=== PATIENT | male | born 1965 ===

== ENCOUNTER 2020-05-13 15:31 | Inpatient (IN) ==
[2020-05-13] MEDS ORDERED: LACTATED RINGERS 1,000 ML IV ONE ×2 (15:47→17:53)
[2020-05-13] MEDS ORDERED: PIPERACILLIN/TAZOBACTAM 3,375 MG in SODIUM CHLORIDE 0.9% 100 ML IV STA (15:47)
[2020-05-13] MEDS ORDERED: PIPERACILLIN/TAZOBACTAM 3,375 MG VIAL IV ONE (16:01)
[2020-05-13] MEDS ORDERED: PROMETHAZINE INJ 25 MG in SODIUM CHLORIDE 0.9% 50 ML IV PRN (17:25)
[2020-05-13] MEDS ORDERED: diphenhydrAMINE 50 MG/1 ML VIAL IV PRN (17:25)
[2020-05-13] MEDS ORDERED: MEPERIDINE 25 MG/1 ML VIAL IV PRN (17:25)
[2020-05-13] MEDS ORDERED: ONDANSETRON 4 MG/2 ML VIAL IV PRN ×2 (17:25→18:58)
[2020-05-13] MEDS ORDERED: SEVOFLURANE 1 UNIT/15 MINUTE INH ONE (17:52)
[2020-05-13] MEDS ORDERED: ALBUMIN 5% 12.5 GM/250 ML VIAL IV ONE (17:52)
[2020-05-13] MEDS ORDERED: CALCIUM CHLORIDE 1,000 MG/10 ML VIAL IV ONE (17:52)
[2020-05-13] MEDS ORDERED: SODIUM BICARBONATE 50 MEQ/50 ML VIAL IV ONE (17:52)
[2020-05-13] MEDS ORDERED: NOREPINEPHRINE 4 MG/4 ML VIAL IV ONE (17:52)
[2020-05-13] MEDS ORDERED: KETAMINE 500 MG/10 ML VIAL ONE (17:52)
[2020-05-13] MEDS ORDERED: DEXAMETHASONE 4 MG/1 ML VIAL ONE (17:52)
[2020-05-13] MEDS ORDERED: fentaNYL 100 MCG/2 ML VIAL ONE (17:52)
[2020-05-13] MEDS ORDERED: PHENYLEPHRINE 10 MG/1 ML VIAL IV ONE (17:53)
[2020-05-13] MEDS ORDERED: ETOMIDATE 40 MG/20 ML VIAL IV ONE (17:53)
[2020-05-13] MEDS ORDERED: SUCCINYLCHOLINE 200 MG/10 ML VIAL ONE (17:53)
[2020-05-13] MEDS ORDERED: ROCURONIUM 100 MG/10 ML VIAL IV ONE (17:53)
[2020-05-13] MEDS ORDERED: ONDANSETRON 4 MG/2 ML VIAL ONE (17:53)
[2020-05-13] MEDS ORDERED: SODIUM CHLORIDE 0.9% 1,000 ML IV ONE (17:53)
[2020-05-13] MEDS ORDERED: SODIUM CHLORIDE 0.9% 250 ML IV ONE (17:53)
[2020-05-13] MEDS ORDERED: GLYCOPYRROLATE 0.4 MG/2 ML VIAL ONE (18:00)
[2020-05-13] MEDS ORDERED: NEOSTIGMINE 10 MG/10 ML VIAL ONE (18:00)
[2020-05-13] MEDS ORDERED: PROMETHAZINE 25 MG/1 ML VIAL IM PRN (18:58)
[2020-05-13] MEDS ORDERED: DEXTROSE 50% 25 GM/50 ML VIAL IV PRN (18:58)
[2020-05-13] MEDS ORDERED: GLUCAGON 1 MG VIAL IM PRN (18:58)
[2020-05-13] MEDS ORDERED: PNEUMOCOCCAL VACCINE (23 VALENT) 0.5 ML VIAL IM ONE (19:11)
[2020-05-13 19:48] LABS: Basophils % 0.3 % (0.0-0.8); Hematocrit 28.2 VOL% (42.0-52.0); Hemoglobin 9.5 GM/DL (14.0-18.0); Lymphocytes # 0.4 10*3/uL (1.4-4.0); Mean Corpuscular HGB Conc 33.7 GM/DL (32-36); Mean Corpuscular Volume 96.2 FL (87-102); Mean Platelet Volume 8.8 FL (9.6-12.0); Neutrophils % 76.7 % (38.7-73.9); Platelet Count 104 T/CUMM (130-400); Red Blood Count 2.93 MC/CUMM (3.8-5.5); Red Cell Distribution Width 15.3 % (9.3-17.3)
[2020-05-13 19:49] LABS: Albumin 1.6 G/DL (3.4-5.0); Calcium 8.3 MG/DL (8.5-10.1); Osmolality,Calculated 290.8 MOS/KG (273-304); Total Protein 5.3 G/DL (6.4-8.3)
[2020-05-13] MEDS: HYDROmorphone 2 MG/1 ML VIAL IV PRN (19:56)
[2020-05-13 20:36] LABS: Lymphocytes 6 % (20-55); Macrocytosis 1+; Polychromasia 1+; Segmented Neutrophils 81 % (50-85); Total Cells Counted 100
[2020-05-13 20:37] LABS: Platelet Estimate Adequate
[2020-05-13] MEDS: LACTATED RINGERS 1,000 ML IV SCH (20:44)
[2020-05-13] MEDS: INSULIN REGULAR 100 UNIT/ML SUBCUT SCH ×2 (20:45→23:32)
[2020-05-13] MEDS ORDERED: VANCOMYCIN INJ 2,000 MG in SODIUM CHLORIDE 0.9% 500 ML IV ONE (21:00)
[2020-05-13] MEDS: PANTOPRAZOLE 40 MG VIAL IV SCH (21:41)
[2020-05-14] MEDS ORDERED: LACTATED RINGERS 1,000 ML IV ONE (00:02)
[2020-05-14] MEDS ORDERED: ALBUMIN 5% 25 GM in PREMIX 1 EACH IV ONE ×2 (00:30→06:16)
[2020-05-14] MEDS ORDERED: LACTATED RINGERS 2,000 ML IV ONE (01:26)
[2020-05-14] MEDS: PIPERACILLIN/TAZOBACTAM 3,375 MG in SODIUM CHLORIDE 0.9% 100 ML IV SCH ×2 (03:24→15:48)
[2020-05-14] MEDS: LACTATED RINGERS 1,000 ML IV SCH ×2 (03:25→08:38)
[2020-05-14 03:45] LABS: Basophils % 0.1 % (0.0-0.8); Hematocrit 23.9 VOL% (42.0-52.0); Hemoglobin 7.9 GM/DL (14.0-18.0); Immature Granulocytes % 0.3 %; Immature Granulocytes Absolute 0.02 #; Lymphocytes # 0.8 10*3/uL (1.4-4.0); Lymphocytes % 10.3 % (21.2-54.2); Mean Corpuscular HGB Conc 33.1 GM/DL (32-36); Mean Corpuscular Volume 96.8 FL (87-102); Mean Platelet Volume 8.7 FL (9.6-12.0); Monocytes % 8.1 % (1.7-12.7); Neutrophils % 81.2 % (38.7-73.9); Platelet Count 62 T/CUMM (130-400); Red Blood Count 2.47 MC/CUMM (3.8-5.5); Red Cell Distribution Width 15.7 % (9.3-17.3); White Blood Count 7.8 T/CUMM (4-12)
[2020-05-14] MEDS ORDERED: SODIUM CHLORIDE 0.9% 1,000 ML IV PRN (04:01)
[2020-05-14 04:02] LABS: Albumin 1.6 G/DL (3.4-5.0); Bilirubin,Total 5.8 MG/DL (0.2-1.0); Calcium 7.7 MG/DL (8.5-10.1); Osmolality,Calculated 294.7 MOS/KG (273-304); Total Protein 4.7 G/DL (6.4-8.3)
[2020-05-14] MEDS: PHENYLEPHRINE DRIP 40 MG/250 ML PREMIX IV PRN ×2 (04:11→13:18)
[2020-05-14 04:36] LABS: Band Neutrophils 9 % (0-10); Lymphocytes 17 % (20-55); Segmented Neutrophils 67 % (50-85); Total Cells Counted 100
[2020-05-14 04:37] LABS: Anisocytosis 1+; Platelet Estimate Decreased
[2020-05-14] MEDS: INSULIN REGULAR 100 UNIT/ML SUBCUT SCH ×3 (05:53→17:46)
[2020-05-14] MEDS: PANTOPRAZOLE 40 MG VIAL IV SCH ×2 (08:27→21:39)
[2020-05-14 12:32] LABS: Basophils % 0.2 % (0.0-0.8); Eosinophils % 0.2 % (0.00-10.9); Hematocrit 34.2 VOL% (42.0-52.0); Hemoglobin 11.1 GM/DL (14.0-18.0); Immature Granulocytes % 0.4 %; Immature Granulocytes Absolute 0.07 #; Lymphocytes # 1.4 10*3/uL (1.4-4.0); Lymphocytes % 9.2 % (21.2-54.2); Mean Corpuscular HGB Conc 32.5 GM/DL (32-36); Mean Corpuscular Volume 94.7 FL (87-102); Monocytes % 7.4 % (1.7-12.7); Neutrophils % 82.6 % (38.7-73.9); Platelet Count 127 T/CUMM (130-400); Red Blood Count 3.61 MC/CUMM (3.8-5.5); Red Cell Distribution Width 16.2 % (9.3-17.3); White Blood Count 15.7 T/CUMM (4-12)
[2020-05-14 14:37] LABS: Band Neutrophils 8 % (0-10); Lymphocytes 7 % (20-55); Metamyelocytes 2 %; Segmented Neutrophils 79 % (50-85); Total Cells Counted 100
[2020-05-14 14:39] LABS: Hypochromasia 1+; Macrocytosis Slight
[2020-05-14 14:40] LABS: Platelet Estimate Increased; Toxic Granulation 1+
[2020-05-14] MEDS: THIAMINE IV SCH (16:50)
[2020-05-14] MEDS: SODIUM BICARB IV SCH (16:50)
[2020-05-14] MEDS: [UNRECOGNIZED DRUG - OTHER] IV SCH (16:50)
[2020-05-14] MEDS: MULTIVITAMIN IV SCH (16:50)
[2020-05-14] MEDS ORDERED: VANCOMYCIN INJ 1,250 MG in SODIUM CHLORIDE 0.9% 250 ML IV SCH (21:00)
[2020-05-14] MEDS: PHENOL 1.4% THROAT SPRAY 177 ML BOTTLE PO PRN (21:38)
[2020-05-14] MEDS: HYDROmorphone 2 MG/1 ML VIAL IV PRN (21:48)
[2020-05-15] MEDS: PHENYLEPHRINE DRIP 40 MG/250 ML PREMIX IV PRN (00:01)
[2020-05-15] MEDS: INSULIN REGULAR 100 UNIT/ML SUBCUT SCH ×5 (00:07→23:55)
[2020-05-15] MEDS ORDERED: LACTATED RINGERS 1,000 ML IV ONE (04:21)
[2020-05-15] MEDS: PIPERACILLIN/TAZOBACTAM 3,375 MG in SODIUM CHLORIDE 0.9% 100 ML IV SCH ×2 (04:35→16:52)
[2020-05-15 04:49] LABS: Basophils # 0.1 10*3/uL (0.0-0.2); Basophils % 0.5 % (0.0-0.8); Eosinophils # 0.2 10*3/uL (0.0-0.87); Eosinophils % 1.4 % (0.00-10.9); Hematocrit 32.1 VOL% (42.0-52.0); Hemoglobin 10.6 GM/DL (14.0-18.0); Immature Granulocytes % 0.8 %; Immature Granulocytes Absolute 0.09 #; Lymphocytes # 1.5 10*3/uL (1.4-4.0); Lymphocytes % 12.9 % (21.2-54.2); Mean Corpuscular Volume 93.6 FL (87-102); Mean Platelet Volume 8.7 FL (9.6-12.0); Monocytes % 10.8 % (1.7-12.7); Neutrophils % 73.6 % (38.7-73.9); Platelet Count 108 T/CUMM (130-400); Red Blood Count 3.43 MC/CUMM (3.8-5.5); Red Cell Distribution Width 16.7 % (9.3-17.3); White Blood Count 11.9 T/CUMM (4-12)
[2020-05-15 05:23] LABS: Albumin 1.8 G/DL (3.4-5.0); Bilirubin,Direct 5.16 MG/DL (0.0-0.20); Bilirubin,Total 6.7 MG/DL (0.2-1.0); Calcium 7.6 MG/DL (8.5-10.1); Osmolality,Calculated 287.4 MOS/KG (273-304); Total Protein 5.8 G/DL (6.4-8.3)
[2020-05-15 06:03] LABS: Band Neutrophils 2 % (0-10); Eosinophils 2 % (0-10); Hypochromasia 1+; Lymphocytes 11 % (20-55); Platelet Estimate Decreased; Segmented Neutrophils 79 % (50-85); Total Cells Counted 100
[2020-05-15 06:04] LABS: Microcytosis 1+
[2020-05-15] MEDS: THIAMINE IV SCH (06:42)
[2020-05-15] MEDS: SODIUM BICARB IV SCH ×3 (06:42→21:46)
[2020-05-15] MEDS: [UNRECOGNIZED DRUG - OTHER] IV SCH (06:42)
[2020-05-15] MEDS: MULTIVITAMIN IV SCH (06:42)
[2020-05-15] MEDS ORDERED: LACTATED RINGERS 1,000 ML IV SCH (08:30)
[2020-05-15] MEDS ORDERED: DEXTROSE IV SCH (10:00)
[2020-05-15] MEDS ORDERED: SODIUM BICARB IV SCH (10:00)
[2020-05-15] MEDS ORDERED: MULTIVITAMIN IV SCH (10:00)
[2020-05-15] MEDS: PANTOPRAZOLE 40 MG VIAL IV SCH ×2 (10:48→21:44)
[2020-05-15] MEDS: ENOXAPARIN 30 MG/0.3 ML SYRINGE SUBCUT SCH (13:53)
[2020-05-15] MEDS: DEX IV SCH ×2 (14:15→21:46)
[2020-05-15] MEDS: LACTATED RINGERS MULTIVITAMIN IV SCH ×2 (14:15→21:46)
[2020-05-16] MEDS: PIPERACILLIN/TAZOBACTAM 3,375 MG in SODIUM CHLORIDE 0.9% 100 ML IV SCH (04:18)
[2020-05-16 05:30] LABS: Basophils # 0.1 10*3/uL (0.0-0.2); Basophils % 0.6 % (0.0-0.8); Eosinophils # 0.2 10*3/uL (0.0-0.87); Eosinophils % 2.5 % (0.00-10.9); Hematocrit 31.4 VOL% (42.0-52.0); Hemoglobin 10.4 GM/DL (14.0-18.0); Immature Granulocytes % 1.3 %; Immature Granulocytes Absolute 0.12 #; Lymphocytes # 1.1 10*3/uL (1.4-4.0); Lymphocytes % 11.9 % (21.2-54.2); Mean Corpuscular HGB Conc 33.1 GM/DL (32-36); Mean Corpuscular Volume 93.5 FL (87-102); Mean Platelet Volume 8.7 FL (9.6-12.0); Monocytes % 7.4 % (1.7-12.7); Neutrophils % 76.3 % (38.7-73.9); Platelet Count 90 T/CUMM (130-400); Red Blood Count 3.36 MC/CUMM (3.8-5.5); Red Cell Distribution Width 16.2 % (9.3-17.3); White Blood Count 9.1 T/CUMM (4-12)
[2020-05-16] MEDS: INSULIN REGULAR 100 UNIT/ML SUBCUT SCH ×4 (05:36→23:45)
[2020-05-16 05:43] LABS: Calcium 7.3 MG/DL (8.5-10.1); Osmolality,Calculated 283.5 MOS/KG (273-304)
[2020-05-16] MEDS: SODIUM BICARB IV SCH (05:44)
[2020-05-16] MEDS: LACTATED RINGERS MULTIVITAMIN IV SCH (05:44)
[2020-05-16] MEDS: DEX IV SCH (05:44)
[2020-05-16 06:01] LABS: Band Neutrophils 2 % (0-10); Eosinophils 5 % (0-10); Lymphocytes 17 % (20-55); Segmented Neutrophils 71 % (50-85); Total Cells Counted 100
[2020-05-16 06:02] LABS: Anisocytosis 1+; Hypochromasia 1+; Microcytosis 1+; Platelet Estimate Decreased; Polychromasia Slight
[2020-05-16] MEDS ORDERED: MAGNESIUM SULF RIDER 2 GM in PREMIX 1 EACH IV ONE ×2 (08:32→16:00)
[2020-05-16] MEDS ORDERED: THIAMINE 200 MG/2 ML VIAL IV SCH (09:00)
[2020-05-16] MEDS: POTASSIUM CHLORIDE 20 MEQ TABLET PO SCH ×3 (09:15→17:18)
[2020-05-16] MEDS: PANTOPRAZOLE 40 MG VIAL IV SCH ×2 (10:12→22:02)
[2020-05-16] MEDS: ENOXAPARIN 30 MG/0.3 ML SYRINGE SUBCUT SCH (13:57)
[2020-05-16] MEDS ORDERED: BENZONATATE 100 MG CAPSULE PO PRN (17:02)
[2020-05-16] MEDS ORDERED: AMOXICILLIN 500 MG CAPSULE PO SCH (21:00)
[2020-05-16] MEDS ORDERED: CLARITHROMYCIN 500 MG TABLET PO SCH (21:00)
[2020-05-16] MEDS: PHENOL 1.4% THROAT SPRAY 177 ML BOTTLE PO PRN (22:02)
[2020-05-17 06:06] LABS: Basophils % 0.4 % (0.0-0.8); Eosinophils # 0.2 10*3/uL (0.0-0.87); Eosinophils % 2.5 % (0.00-10.9); Hematocrit 31.6 VOL% (42.0-52.0); Hemoglobin 10.7 GM/DL (14.0-18.0); Immature Granulocytes % 0.9 %; Immature Granulocytes Absolute 0.08 #; Lymphocytes # 0.9 10*3/uL (1.4-4.0); Lymphocytes % 9.8 % (21.2-54.2); Mean Corpuscular HGB Conc 33.9 GM/DL (32-36); Mean Corpuscular Volume 91.9 FL (87-102); Mean Platelet Volume 8.9 FL (9.6-12.0); Monocytes % 9.8 % (1.7-12.7); Neutrophils % 76.6 % (38.7-73.9); Platelet Count 98 T/CUMM (130-400); Red Blood Count 3.44 MC/CUMM (3.8-5.5); Red Cell Distribution Width 15.9 % (9.3-17.3); White Blood Count 9.2 T/CUMM (4-12)
[2020-05-17 06:38] LABS: Albumin 1.3 G/DL (3.4-5.0); Bilirubin,Direct 6.01 MG/DL (0.0-0.20); Bilirubin,Indirect 2.1 MG/DL (0.0-1.0); Bilirubin,Total 8.1 MG/DL (0.2-1.0); Calcium 7.4 MG/DL (8.5-10.1); Osmolality,Calculated 286.4 MOS/KG (273-304); Total Protein 5.3 G/DL (6.4-8.3)
[2020-05-17 07:00] LABS: Hypochromasia 1+; Microcytosis 1+; Platelet Estimate Decreased
[2020-05-17] MEDS: INSULIN REGULAR 100 UNIT/ML SUBCUT SCH ×4 (07:15→20:34)
[2020-05-17] MEDS ORDERED: VANCOMYCIN INJ 1,250 MG in SODIUM CHLORIDE 0.9% 250 ML IV SCH (09:00)
[2020-05-17] MEDS ORDERED: ALBUMIN 5% 25 GM in PREMIX 1 EACH IV SCH (09:00)
[2020-05-17] MEDS: AMOXICILLIN 500 MG CAPSULE PO SCH ×2 (09:21→20:30)
[2020-05-17] MEDS: PANTOPRAZOLE 40 MG TABLET PO SCH ×2 (09:25→20:30)
[2020-05-17] MEDS: THIAMINE 100 MG TABLET PO SCH (09:25)
[2020-05-17] MEDS: CLARITHROMYCIN 500 MG TABLET PO SCH ×2 (11:06→20:30)
[2020-05-17] MEDS: FUROSEMIDE 40 MG/4 ML VIAL IV SCH ×2 (11:07→19:09)
[2020-05-17] MEDS: ALBUMIN 25% 25 GM in PREMIX 1 EACH IV SCH ×2 (11:08→19:09)
[2020-05-17] MEDS: ENOXAPARIN 30 MG/0.3 ML SYRINGE SUBCUT SCH (20:30)
[2020-05-17] MEDS: SODIUM BICARBONATE 650 MG TABLET PO SCH (20:30)
[2020-05-18] MEDS: ALBUMIN 25% 25 GM in PREMIX 1 EACH IV SCH ×3 (01:36→17:42)
[2020-05-18] MEDS: FUROSEMIDE 40 MG/4 ML VIAL IV SCH ×3 (02:37→19:09)
[2020-05-18 05:37] LABS: Basophils # 0.1 10*3/uL (0.0-0.2); Basophils % 0.6 % (0.0-0.8); Eosinophils # 0.2 10*3/uL (0.0-0.87); Eosinophils % 2.8 % (0.00-10.9); Hematocrit 30.3 VOL% (42.0-52.0); Hemoglobin 10.4 GM/DL (14.0-18.0); Immature Granulocytes % 1.7 %; Immature Granulocytes Absolute 0.14 #; Lymphocytes # 0.8 10*3/uL (1.4-4.0); Lymphocytes % 9.7 % (21.2-54.2); Mean Corpuscular HGB Conc 34.3 GM/DL (32-36); Mean Corpuscular Volume 91.3 FL (87-102); Mean Platelet Volume 8.7 FL (9.6-12.0); Monocytes % 10.3 % (1.7-12.7); Neutrophils % 74.9 % (38.7-73.9); Platelet Count 80 T/CUMM (130-400); Red Blood Count 3.32 MC/CUMM (3.8-5.5); Red Cell Distribution Width 15.8 % (9.3-17.3); White Blood Count 8.3 T/CUMM (4-12)
[2020-05-18 05:47] LABS: Osmolality,Calculated 279.1 MOS/KG (273-304)
[2020-05-18 05:59] LABS: Hypochromasia 1+; Microcytosis 1+; Platelet Estimate Decreased
[2020-05-18] MEDS: INSULIN REGULAR 100 UNIT/ML SUBCUT SCH ×4 (07:30→20:59)
[2020-05-18] MEDS: SODIUM BICARBONATE 650 MG TABLET PO SCH ×2 (09:22→20:57)
[2020-05-18] MEDS: PANTOPRAZOLE 40 MG TABLET PO SCH ×2 (09:23→20:57)
[2020-05-18] MEDS: AMOXICILLIN 500 MG CAPSULE PO SCH ×2 (09:23→20:57)
[2020-05-18] MEDS: THIAMINE 100 MG TABLET PO SCH (09:23)
[2020-05-18] MEDS: CLARITHROMYCIN 500 MG TABLET PO SCH ×2 (09:25→20:59)
[2020-05-18 11:12] LABS: Albumin 2.1 G/DL (3.4-5.0); Bilirubin,Direct 8.17 MG/DL (0.0-0.20); Bilirubin,Indirect 2.7 MG/DL (0.0-1.0); Bilirubin,Total 10.9 MG/DL (0.2-1.0); Total Protein 5.8 G/DL (6.4-8.3)
[2020-05-18] MEDS: ENOXAPARIN 30 MG/0.3 ML SYRINGE SUBCUT SCH (20:59)
[2020-05-19] MEDS: ALBUMIN 25% 25 GM in PREMIX 1 EACH IV SCH ×3 (02:17→19:10)
[2020-05-19] MEDS ORDERED: ACETYLCYSTEINE IV ONE ×3 (02:30→22:00)
[2020-05-19] MEDS ORDERED: DEXTROSE 5% IV ONE ×3 (02:30→22:00)
[2020-05-19] MEDS: FUROSEMIDE 40 MG/4 ML VIAL IV SCH ×3 (04:01→18:24)
[2020-05-19 06:41] LABS: Basophils % 0.6 % (0.0-0.8); Eosinophils # 0.1 10*3/uL (0.0-0.87); Eosinophils % 2.1 % (0.00-10.9); Hematocrit 27.7 VOL% (42.0-52.0); Hemoglobin 9.4 GM/DL (14.0-18.0); Immature Granulocytes Absolute 0.13 #; Lymphocytes # 0.7 10*3/uL (1.4-4.0); Lymphocytes % 11.3 % (21.2-54.2); Mean Corpuscular HGB Conc 33.9 GM/DL (32-36); Mean Platelet Volume 9.1 FL (9.6-12.0); Monocytes % 9.9 % (1.7-12.7); Neutrophils % 74.1 % (38.7-73.9); Platelet Count 72 T/CUMM (130-400); Red Blood Count 3.01 MC/CUMM (3.8-5.5); Red Cell Distribution Width 15.7 % (9.3-17.3); White Blood Count 6.6 T/CUMM (4-12)
[2020-05-19 07:02] LABS: Albumin 2.5 G/DL (3.4-5.0); Bilirubin,Direct 8.3 MG/DL (0.0-0.20); Bilirubin,Indirect 3.8 MG/DL (0.0-1.0); Total Protein 5.6 G/DL (6.4-8.3)
[2020-05-19 07:09] LABS: Bilirubin,Total 12.1 MG/DL (0.2-1.0)
[2020-05-19 07:16] LABS: Calcium 7.8 MG/DL (8.5-10.1)
[2020-05-19] MEDS ORDERED: MAGNESIUM SULF RIDER 4 GM in PREMIX 1 EACH IV ONE (09:00)
[2020-05-19] MEDS: CLARITHROMYCIN 500 MG TABLET PO SCH ×2 (09:36→21:25)
[2020-05-19] MEDS: THIAMINE 100 MG TABLET PO SCH (09:36)
[2020-05-19] MEDS: PANTOPRAZOLE 40 MG TABLET PO SCH ×2 (09:36→21:23)
[2020-05-19] MEDS: AMOXICILLIN 500 MG CAPSULE PO SCH ×2 (09:46→21:23)
[2020-05-19] MEDS: INSULIN REGULAR 100 UNIT/ML SUBCUT SCH ×4 (09:46→23:42)
[2020-05-19 12:27] LABS: INR 1.4; PT Patient Result 15.1 SECS (9.8-11.9)
[2020-05-19 13:06] LABS: Partial Thromboplastin Time 46.1 SECS (23.9-33.8)
[2020-05-19] MEDS: SODIUM BICARBONATE 650 MG TABLET PO SCH ×2 (13:50→21:23)
[2020-05-19 17:13] LABS: % Iron Saturation 81.7 % (18-50)
[2020-05-19 18:10] LABS: Hepatitis B Core IgM Quant 0.22 Index; Hepatitis B Surface Ag Quant < 0.10 Index; Hepatitis B Surface Ag Result Negative (Negative); Hepatitis C Virus Ab Quant 0.11 Index; Hepatitis C Virus Ab Result Negative (Negative)
[2020-05-19] MEDS: ENOXAPARIN 30 MG/0.3 ML SYRINGE SUBCUT SCH (21:23)
[2020-05-20] MEDS: FUROSEMIDE 40 MG/4 ML VIAL IV SCH ×2 (04:06→09:35)
[2020-05-20] MEDS: ALBUMIN 25% 25 GM in PREMIX 1 EACH IV SCH ×3 (04:06→18:03)
[2020-05-20 05:20] LABS: Basophils % 0.6 % (0.0-0.8); Eosinophils # 0.1 10*3/uL (0.0-0.87); Eosinophils % 1.7 % (0.00-10.9); Hematocrit 26.6 VOL% (42.0-52.0); Hemoglobin 9.5 GM/DL (14.0-18.0); Immature Granulocytes % 3.3 %; Immature Granulocytes Absolute 0.23 #; Lymphocytes # 0.8 10*3/uL (1.4-4.0); Lymphocytes % 10.8 % (21.2-54.2); Mean Corpuscular HGB Conc 35.7 GM/DL (32-36); Mean Corpuscular Volume 90.8 FL (87-102); Mean Platelet Volume 9.3 FL (9.6-12.0); Monocytes % 12.7 % (1.7-12.7); Neutrophils % 70.9 % (38.7-73.9); Red Blood Count 2.93 MC/CUMM (3.8-5.5); Red Cell Distribution Width 15.3 % (9.3-17.3)
[2020-05-20 05:32] LABS: INR 1.6; Partial Thromboplastin Time 46.4 SECS (23.9-33.8)
[2020-05-20 05:33] LABS: Platelet Count 87 T/CUMM (130-400)
[2020-05-20 05:43] LABS: Eosinophils 1 % (0-10); Hypochromasia 1+; Lymphocytes 7 % (20-55); Microcytosis Slight; Platelet Estimate Decreased; Segmented Neutrophils 81 % (50-85); Total Cells Counted 100
[2020-05-20 06:05] LABS: Albumin 2.2 G/DL (3.4-5.0); Bilirubin,Direct 9.1 MG/DL (0.0-0.20); Bilirubin,Indirect 4.6 MG/DL (0.0-1.0); Calcium 8.1 MG/DL (8.5-10.1); Osmolality,Calculated 276.4 MOS/KG (273-304); Total Protein 5.3 G/DL (6.4-8.3)
[2020-05-20 06:15] LABS: Bilirubin,Total 13.7 MG/DL (0.2-1.0)
[2020-05-20] MEDS ORDERED: DEXTROSE 5% IV ONE (09:30)
[2020-05-20] MEDS ORDERED: ACETYLCYSTEINE IV ONE (09:30)
[2020-05-20] MEDS: INSULIN REGULAR 100 UNIT/ML SUBCUT SCH ×4 (09:33→22:16)
[2020-05-20] MEDS: SODIUM BICARBONATE 650 MG TABLET PO SCH ×2 (09:34→22:16)
[2020-05-20] MEDS: PANTOPRAZOLE 40 MG TABLET PO SCH ×2 (09:34→22:15)
[2020-05-20] MEDS: CLARITHROMYCIN 500 MG TABLET PO SCH ×2 (09:34→22:16)
[2020-05-20] MEDS: THIAMINE 100 MG TABLET PO SCH (09:35)
[2020-05-20] MEDS: AMOXICILLIN 500 MG CAPSULE PO SCH (09:35)
[2020-05-20] MEDS ORDERED: methylPREDNISolone SOD SUC 40 MG/1 ML VIAL IV SCH (13:30)
[2020-05-20 17:16] LABS: Cancer Antigen 19-9 31.8 U/ML (0-37); Carcinoembryonic Antigen 1.5 NG/ML (0.0-5.0)
[2020-05-20] MEDS: ENOXAPARIN 30 MG/0.3 ML SYRINGE SUBCUT SCH (22:16)
[2020-05-21] MEDS: ALBUMIN 25% 25 GM in PREMIX 1 EACH IV SCH ×3 (04:04→18:23)
[2020-05-21 05:19] LABS: Basophils % 0.1 % (0.0-0.8); Hematocrit 27.2 VOL% (42.0-52.0); Hemoglobin 9.6 GM/DL (14.0-18.0); Immature Granulocytes % 1.5 %; Immature Granulocytes Absolute 0.11 #; Lymphocytes # 0.5 10*3/uL (1.4-4.0); Lymphocytes % 6.8 % (21.2-54.2); Mean Corpuscular HGB Conc 35.3 GM/DL (32-36); Mean Corpuscular Volume 89.2 FL (87-102); Mean Platelet Volume 9.5 FL (9.6-12.0); Monocytes % 2.5 % (1.7-12.7); Neutrophils % 89.1 % (38.7-73.9); Red Blood Count 3.05 MC/CUMM (3.8-5.5); Red Cell Distribution Width 15.2 % (9.3-17.3); White Blood Count 7.2 T/CUMM (4-12)
[2020-05-21 05:20] LABS: Platelet Count 83 T/CUMM (130-400)
[2020-05-21 05:36] LABS: INR 1.7; Partial Thromboplastin Time 49.2 SECS (23.9-33.8)
[2020-05-21 05:37] LABS: Platelet Estimate Decreased
[2020-05-21 05:44] LABS: Albumin 2.7 G/DL (3.4-5.0); Calcium 8.8 MG/DL (8.5-10.1); Osmolality,Calculated 277.8 MOS/KG (273-304)
[2020-05-21] MEDS ORDERED: LEVOFLOXACIN 500 MG TABLET PO ONE (07:16)
[2020-05-21] MEDS ORDERED: POTASSIUM CHLORIDE INJ 10 MEQ in SODIUM CHLORIDE 0.45% 1,000 ML IV SCH (08:00)
[2020-05-21] MEDS: INSULIN REGULAR 100 UNIT/ML SUBCUT SCH ×4 (09:21→21:34)
[2020-05-21] MEDS: SODIUM BICARBONATE 650 MG TABLET PO SCH ×2 (09:22→21:25)
[2020-05-21] MEDS: PANTOPRAZOLE 40 MG TABLET PO SCH ×2 (09:22→21:25)
[2020-05-21] MEDS: CLARITHROMYCIN 500 MG TABLET PO SCH ×2 (09:22→21:25)
[2020-05-21] MEDS: THIAMINE 100 MG TABLET PO SCH (09:23)
[2020-05-21] MEDS: FUROSEMIDE 40 MG/4 ML VIAL IV SCH (09:23)
[2020-05-21] MEDS: traMADol 50 MG TABLET PO PRN (16:53)
[2020-05-21] MEDS ORDERED: traMADol 50 MG TABLET PO ONE (20:55)
[2020-05-21] MEDS: ENOXAPARIN 30 MG/0.3 ML SYRINGE SUBCUT SCH (21:26)
[2020-05-22] MEDS: ALBUMIN 25% 25 GM in PREMIX 1 EACH IV SCH ×3 (02:13→18:48)
[2020-05-22 08:11] LABS: Basophils % 0.3 % (0.0-0.8); Eosinophils % 0.3 % (0.00-10.9); Hematocrit 25.4 VOL% (42.0-52.0); Hemoglobin 8.9 GM/DL (14.0-18.0); Immature Granulocytes % 1.1 %; Immature Granulocytes Absolute 0.13 #; Lymphocytes # 1.1 10*3/uL (1.4-4.0); Lymphocytes % 9.1 % (21.2-54.2); Mean Corpuscular Volume 88.5 FL (87-102); Mean Platelet Volume 9.1 FL (9.6-12.0); Monocytes % 7.5 % (1.7-12.7); Neutrophils % 81.7 % (38.7-73.9); Platelet Count 123 T/CUMM (130-400); Red Blood Count 2.87 MC/CUMM (3.8-5.5); Red Cell Distribution Width 15.5 % (9.3-17.3); White Blood Count 11.6 T/CUMM (4-12)
[2020-05-22 08:25] LABS: INR 1.5; PT Patient Result 16.1 SECS (9.8-11.9)
[2020-05-22 08:41] LABS: Bilirubin,Total 11.6 MG/DL (0.2-1.0); Calcium 9.2 MG/DL (8.5-10.1); Osmolality,Calculated 277.4 MOS/KG (273-304); Total Protein 5.8 G/DL (6.4-8.3)
[2020-05-22] MEDS: FUROSEMIDE 40 MG/4 ML VIAL IV SCH (09:12)
[2020-05-22] MEDS: INSULIN REGULAR 100 UNIT/ML SUBCUT SCH ×4 (10:12→21:51)
[2020-05-22] MEDS: CLARITHROMYCIN 500 MG TABLET PO SCH ×2 (13:30→21:53)
[2020-05-22] MEDS: PANTOPRAZOLE 40 MG TABLET PO SCH ×2 (13:30→21:54)
[2020-05-22] MEDS: SODIUM BICARBONATE 650 MG TABLET PO SCH ×2 (13:30→21:53)
[2020-05-22] MEDS: LEVOFLOXACIN 250 MG TABLET PO SCH (13:30)
[2020-05-22] MEDS: THIAMINE 100 MG TABLET PO SCH (13:30)
[2020-05-22] MEDS: ENOXAPARIN 30 MG/0.3 ML SYRINGE SUBCUT SCH (22:01)
[2020-05-23 06:03] LABS: Basophils % 0.3 % (0.0-0.8); Eosinophils # 0.1 10*3/uL (0.0-0.87); Eosinophils % 0.5 % (0.00-10.9); Hematocrit 23.9 VOL% (42.0-52.0); Hemoglobin 8.3 GM/DL (14.0-18.0); Immature Granulocytes % 1.5 %; Immature Granulocytes Absolute 0.14 #; Lymphocytes # 0.9 10*3/uL (1.4-4.0); Lymphocytes % 9.4 % (21.2-54.2); Mean Corpuscular HGB Conc 34.7 GM/DL (32-36); Mean Corpuscular Volume 90.2 FL (87-102); Mean Platelet Volume 9.2 FL (9.6-12.0); Monocytes % 8.5 % (1.7-12.7); Neutrophils % 79.8 % (38.7-73.9); Platelet Count 115 T/CUMM (130-400); Red Blood Count 2.65 MC/CUMM (3.8-5.5); Red Cell Distribution Width 16.2 % (9.3-17.3); White Blood Count 9.2 T/CUMM (4-12)
[2020-05-23 06:12] LABS: INR 1.6; PT Patient Result 16.7 SECS (9.8-11.9)
[2020-05-23 06:31] LABS: Albumin 2.9 G/DL (3.4-5.0); Calcium 8.6 MG/DL (8.5-10.1); Osmolality,Calculated 284.8 MOS/KG (273-304); Total Protein 5.5 G/DL (6.4-8.3)
[2020-05-23 06:37] LABS: Bilirubin,Total 13.1 MG/DL (0.2-1.0)
[2020-05-23] MEDS: INSULIN REGULAR 100 UNIT/ML SUBCUT SCH ×4 (07:49→21:51)
[2020-05-23] MEDS: PANTOPRAZOLE 40 MG TABLET PO SCH ×2 (08:36→21:45)
[2020-05-23] MEDS: CLARITHROMYCIN 500 MG TABLET PO SCH ×2 (08:36→21:44)
[2020-05-23] MEDS: THIAMINE 100 MG TABLET PO SCH (08:36)
[2020-05-23] MEDS: SODIUM BICARBONATE 650 MG TABLET PO SCH ×2 (08:36→21:44)
[2020-05-23] MEDS: FUROSEMIDE 40 MG/4 ML VIAL IV SCH (08:36)
[2020-05-23] MEDS: LEVOFLOXACIN 250 MG TABLET PO SCH (08:36)
[2020-05-23] MEDS: ALBUMIN 25% 25 GM in PREMIX 1 EACH IV SCH ×2 (08:37→17:21)
[2020-05-23] MEDS: traMADol 50 MG TABLET PO PRN (08:49)
[2020-05-23] MEDS: ENOXAPARIN 30 MG/0.3 ML SYRINGE SUBCUT SCH (21:44)
[2020-05-24] MEDS: ALBUMIN 25% 25 GM in PREMIX 1 EACH IV SCH ×3 (00:34→17:27)
[2020-05-24 05:57] LABS: Basophils % 0.4 % (0.0-0.8); Eosinophils # 0.1 10*3/uL (0.0-0.87); Eosinophils % 0.8 % (0.00-10.9); Hematocrit 23.4 VOL% (42.0-52.0); Hemoglobin 8.3 GM/DL (14.0-18.0); Immature Granulocytes % 1.5 %; Immature Granulocytes Absolute 0.16 #; Lymphocytes % 9.3 % (21.2-54.2); Mean Corpuscular HGB Conc 35.5 GM/DL (32-36); Mean Corpuscular Volume 89.3 FL (87-102); Mean Platelet Volume 9.2 FL (9.6-12.0); Monocytes % 6.7 % (1.7-12.7); Neutrophils % 81.3 % (38.7-73.9); Platelet Count 105 T/CUMM (130-400); Red Blood Count 2.62 MC/CUMM (3.8-5.5); Red Cell Distribution Width 16.6 % (9.3-17.3); White Blood Count 10.6 T/CUMM (4-12)
[2020-05-24 06:21] LABS: Albumin 3.1 G/DL (3.4-5.0); Bilirubin,Direct 11.4 MG/DL (0.0-0.20); Calcium 8.4 MG/DL (8.5-10.1); Osmolality,Calculated 279.1 MOS/KG (273-304); Total Protein 5.6 G/DL (6.4-8.3)
[2020-05-24 06:23] LABS: Bilirubin,Total 17.4 MG/DL (0.2-1.0)
[2020-05-24] MEDS: THIAMINE 100 MG TABLET PO SCH (08:20)
[2020-05-24] MEDS: CLARITHROMYCIN 500 MG TABLET PO SCH (08:21)
[2020-05-24] MEDS: LEVOFLOXACIN 250 MG TABLET PO SCH (08:21)
[2020-05-24] MEDS: SODIUM BICARBONATE 650 MG TABLET PO SCH ×2 (08:21→21:36)
[2020-05-24] MEDS: PANTOPRAZOLE 40 MG TABLET PO SCH ×2 (08:21→21:36)
[2020-05-24] MEDS: FUROSEMIDE 40 MG/4 ML VIAL IV SCH (08:22)
[2020-05-24] MEDS: INSULIN REGULAR 100 UNIT/ML SUBCUT SCH ×4 (08:23→22:30)
[2020-05-24] MEDS: FLUTICASONE 50 MCG NASAL SPRAY 16 GM BOTTLE BOTH NARES SCH (08:23)
[2020-05-24 08:54] LABS: PT Patient Result 20.9 SECS (9.8-11.9)
[2020-05-24 17:14] LABS: Bilirubin BF 5.4; Bilirubin Fluid Type Peritoneal
[2020-05-24] MEDS ORDERED: SODIUM CHLORIDE 0.9% 1,000 ML IV PRN (19:00)
[2020-05-25] MEDS: ALBUMIN 25% 25 GM in PREMIX 1 EACH IV SCH ×3 (01:15→16:39)
[2020-05-25 06:38] LABS: Basophils # 0.1 10*3/uL (0.0-0.2); Basophils % 0.4 % (0.0-0.8); Eosinophils # 0.1 10*3/uL (0.0-0.87); Eosinophils % 0.9 % (0.00-10.9); Hematocrit 22.7 VOL% (42.0-52.0); Hemoglobin 7.8 GM/DL (14.0-18.0); Immature Granulocytes % 1.6 %; Lymphocytes % 7.7 % (21.2-54.2); Mean Corpuscular HGB Conc 34.4 GM/DL (32-36); Mean Corpuscular Volume 90.4 FL (87-102); Mean Platelet Volume 8.9 FL (9.6-12.0); Monocytes % 6.4 % (1.7-12.7); Platelet Count 121 T/CUMM (130-400); Red Blood Count 2.51 MC/CUMM (3.8-5.5); Red Cell Distribution Width 16.9 % (9.3-17.3); White Blood Count 12.8 T/CUMM (4-12)
[2020-05-25 06:47] LABS: INR 1.6; PT Patient Result 16.4 SECS (9.8-11.9)
[2020-05-25 06:48] LABS: INR 1.6; PT Patient Result 16.7 SECS (9.8-11.9)
[2020-05-25 07:14] LABS: Albumin 3.1 G/DL (3.4-5.0); Calcium 8.3 MG/DL (8.5-10.1); Osmolality,Calculated 282.8 MOS/KG (273-304); Total Protein 5.6 G/DL (6.4-8.3)
[2020-05-25] MEDS ORDERED: SODIUM CHLORIDE 0.9% 1,000 ML IV PRN (07:53)
[2020-05-25] MEDS: INSULIN REGULAR 100 UNIT/ML SUBCUT SCH ×4 (08:27→20:53)
[2020-05-25] MEDS: FUROSEMIDE 40 MG/4 ML VIAL IV SCH (08:27)
[2020-05-25] MEDS: FLUTICASONE 50 MCG NASAL SPRAY 16 GM BOTTLE BOTH NARES SCH (08:27)
[2020-05-25] MEDS: THIAMINE 100 MG TABLET PO SCH (09:59)
[2020-05-25] MEDS: SODIUM BICARBONATE 650 MG TABLET PO SCH ×2 (09:59→20:37)
[2020-05-25] MEDS: PANTOPRAZOLE 40 MG TABLET PO SCH ×2 (09:59→20:38)
[2020-05-25] MEDS: LEVOFLOXACIN 250 MG TABLET PO SCH (09:59)
[2020-05-25] MEDS ORDERED: DIAZEPAM 5 MG TABLET PO ONE (10:27)
[2020-05-25 18:49] LABS: INR 1.5; PT Patient Result 15.8 SECS (9.8-11.9)
[2020-05-25] MEDS: ENOXAPARIN 30 MG/0.3 ML SYRINGE SUBCUT SCH (20:38)
[2020-05-26 05:38] LABS: Basophils % 0.3 % (0.0-0.8); Eosinophils # 0.1 10*3/uL (0.0-0.87); Eosinophils % 1.1 % (0.00-10.9); Hemoglobin 7.6 GM/DL (14.0-18.0); Immature Granulocytes % 1.4 %; Immature Granulocytes Absolute 0.14 #; Lymphocytes % 9.2 % (21.2-54.2); Mean Corpuscular HGB Conc 34.5 GM/DL (32-36); Mean Corpuscular Volume 90.2 FL (87-102); Mean Platelet Volume 8.7 FL (9.6-12.0); Monocytes % 7.7 % (1.7-12.7); Neutrophils % 80.3 % (38.7-73.9); Platelet Count 123 T/CUMM (130-400); Red Blood Count 2.44 MC/CUMM (3.8-5.5); Red Cell Distribution Width 17.6 % (9.3-17.3); White Blood Count 10.4 T/CUMM (4-12)
[2020-05-26 05:50] LABS: INR 1.5; PT Patient Result 15.9 SECS (9.8-11.9)
[2020-05-26] MEDS ORDERED: SODIUM CHLORIDE 0.9% 1,000 ML IV PRN (07:21)
[2020-05-26] MEDS: FLUTICASONE 50 MCG NASAL SPRAY 16 GM BOTTLE BOTH NARES SCH (09:46)
[2020-05-26] MEDS: LEVOFLOXACIN 250 MG TABLET PO SCH (09:47)
[2020-05-26] MEDS: FUROSEMIDE 40 MG/4 ML VIAL IV SCH (09:47)
[2020-05-26] MEDS: PANTOPRAZOLE 40 MG TABLET PO SCH (09:47)
[2020-05-26] MEDS: SODIUM BICARBONATE 650 MG TABLET PO SCH (09:47)
[2020-05-26] MEDS: THIAMINE 100 MG TABLET PO SCH (09:47)
[2020-05-26] MEDS: INSULIN REGULAR 100 UNIT/ML SUBCUT SCH ×2 (09:48→12:24)
[2020-05-26] MEDS: traMADol 50 MG TABLET PO PRN (10:38)
[2020-05-26 13:03] LABS: Calcium 8.4 MG/DL (8.5-10.1); Total Protein 5.6 G/DL (6.4-8.3)
[2020-05-26 13:04] LABS: Osmolality,Calculated 288.8 MOS/KG (273-304)
[2020-05-26 13:05] LABS: Bilirubin,Total 23.4 MG/DL (0.2-1.0)
[2020-05-26] MEDS ORDERED: TISSUE ADHESIVE 1 EACH APPLICATOR TOP ONE (13:45)
[2020-05-26 15:13] VITALS: BP 149/75
== END 2020-05-26 15:47 | disposition home health service (06) | DRG 853 ==
LOC: EDUNIT# → EDBD → N.ED 15:31 → N.EDINP 16:00 → N.3E 18:55 → N.ICU 05-14 03:13 → N.5E 05-16 12:38
PROVIDERS: ADMIT Surgery; ATTEND Surgery

== ENCOUNTER 2020-06-09 18:46 | Inpatient (IN) ==
[2020-06-10] MEDS ORDERED: ACETAMINOPHEN 325 MG TABLET PO PRN (01:07)
[2020-06-10] MEDS ORDERED: ONDANSETRON 4 MG/2 ML VIAL IV PRN (01:07)
[2020-06-10] MEDS ORDERED: LACTULOSE 20 GM/30 ML UDCUP PO PRN ×2 (01:07→01:18)
[2020-06-10] MEDS ORDERED: DEXTROSE 50% 25 GM/50 ML VIAL IV PRN ×2 (01:07→11:04)
[2020-06-10] MEDS ORDERED: GLUCAGON 1 MG VIAL IM PRN ×2 (01:07→11:04)
[2020-06-10] MEDS ORDERED: MORPHINE 4 MG/1 ML VIAL IV PRN (01:07)
[2020-06-10] MEDS ORDERED: DEXTROSE 5% NACL 0.45% 1,000 ML IV SCH (01:30)
[2020-06-10] MEDS ORDERED: THIAMINE INJ 100 MG, FOLIC ACID INJ 1 MG, MULTIVITAMIN INJ 10 ML in SODIUM CHLORIDE 0.9... IV ONE (01:30)
[2020-06-10 01:45] LABS: Basophils # 0.1 10*3/uL (0.0-0.2); Basophils % 0.5 % (0.0-0.8); Eosinophils # 0.1 10*3/uL (0.0-0.87); Hematocrit 27.9 VOL% (42.0-52.0); Hemoglobin 9.4 GM/DL (14.0-18.0); Immature Granulocytes % 1.9 %; Immature Granulocytes Absolute 0.21 #; Lymphocytes # 1.1 10*3/uL (1.4-4.0); Lymphocytes % 9.9 % (21.2-54.2); Mean Corpuscular HGB Conc 33.7 GM/DL (32-36); Mean Corpuscular Volume 95.2 FL (87-102); Mean Platelet Volume 8.5 FL (9.6-12.0); Monocytes % 7.5 % (1.7-12.7); Neutrophils % 79.2 % (38.7-73.9); Platelet Count 162 T/CUMM (130-400); Red Blood Count 2.93 MC/CUMM (3.8-5.5); Red Cell Distribution Width 20.7 % (9.3-17.3); White Blood Count 11.1 T/CUMM (4-12)
[2020-06-10] MEDS ORDERED: traMADol 50 MG TABLET PO PRN (01:45)
[2020-06-10 02:02] LABS: Partial Thromboplastin Time 60.8 SECS (23.9-33.8)
[2020-06-10 02:20] LABS: Albumin 1.8 G/DL (3.4-5.0); Calcium 11.9 MG/DL (8.5-10.1); Osmolality,Calculated 297.3 MOS/KG (273-304)
[2020-06-10 02:22] LABS: Bilirubin,Total 30.8 MG/DL (0.2-1.0)
[2020-06-10 02:24] LABS: HDL Cholesterol 11 MG/DL (40-60); Risk Ratio 4.55; Triglycerides 251 MG/DL (2-150); VLDL CHOLESTEROL 50.2 MG/DL
[2020-06-10] MEDS: DEXTROSE 5% NACL 0.9% 1,000 ML IV SCH ×5 (02:49→20:00)
[2020-06-10] MEDS: LACTULOSE 20 GM/30 ML UDCUP PO SCH ×4 (02:49→21:26)
[2020-06-10] MEDS ORDERED: CLOPIDOGREL 75 MG TABLET PO SCH (09:00)
[2020-06-10] MEDS ORDERED: lisinopriL 5 MG TABLET PO SCH (09:00)
[2020-06-10] MEDS: FOLIC ACID 1 MG TABLET PO SCH (09:53)
[2020-06-10] MEDS: METOPROLOL TARTRATE 25 MG TABLET PO SCH ×2 (09:53→21:25)
[2020-06-10] MEDS: sitaGLIPtin 25 MG TABLET PO SCH ×2 (09:54→12:27)
[2020-06-10] MEDS: FUROSEMIDE 20 MG TABLET PO SCH (09:54)
[2020-06-10] MEDS: THIAMINE 100 MG TABLET PO SCH (09:54)
[2020-06-10] MEDS: PANTOPRAZOLE 40 MG TABLET PO SCH ×2 (09:54→21:26)
[2020-06-10] MEDS: ASPIRIN EC 81 MG TABLET PO SCH (09:54)
[2020-06-10] MEDS: INSULIN LISPRO 100 UNIT/ML SUBCUT SCH ×7 (09:55→21:57)
[2020-06-10] MEDS ORDERED: INSULIN GLARGINE 100 UNIT/ML SUBCUT SCH (21:00)
[2020-06-11] MEDS: LACTULOSE 20 GM/30 ML UDCUP PO SCH ×4 (02:24→19:35)
[2020-06-11] MEDS: DEXTROSE 5% NACL 0.9% 1,000 ML IV SCH ×2 (02:25→09:33)
[2020-06-11 06:13] LABS: Basophils % 0.4 % (0.0-0.8); Eosinophils # 0.1 10*3/uL (0.0-0.87); Eosinophils % 1.3 % (0.00-10.9); Hematocrit 26.9 VOL% (42.0-52.0); Hemoglobin 9.1 GM/DL (14.0-18.0); Immature Granulocytes % 1.5 %; Immature Granulocytes Absolute 0.14 #; Lymphocytes # 0.7 10*3/uL (1.4-4.0); Lymphocytes % 7.3 % (21.2-54.2); Mean Corpuscular HGB Conc 33.8 GM/DL (32-36); Mean Corpuscular Volume 95.7 FL (87-102); Mean Platelet Volume 8.7 FL (9.6-12.0); Monocytes % 6.9 % (1.7-12.7); Neutrophils % 82.6 % (38.7-73.9); Platelet Count 126 T/CUMM (130-400); Red Blood Count 2.81 MC/CUMM (3.8-5.5); Red Cell Distribution Width 20.8 % (9.3-17.3); White Blood Count 9.5 T/CUMM (4-12)
[2020-06-11 06:42] LABS: Albumin 1.7 G/DL (3.4-5.0); Calcium 11.4 MG/DL (8.5-10.1); Osmolality,Calculated 313.3 MOS/KG (273-304); Total Protein 5.7 G/DL (6.4-8.3)
[2020-06-11 07:07] LABS: Bilirubin,Total 28.2 MG/DL (0.2-1.0)
[2020-06-11] MEDS: INSULIN LISPRO 100 UNIT/ML SUBCUT SCH ×6 (09:15→19:12)
[2020-06-11] MEDS: sitaGLIPtin 25 MG TABLET PO SCH (09:16)
[2020-06-11] MEDS: ASPIRIN EC 81 MG TABLET PO SCH (09:16)
[2020-06-11] MEDS: DEXTROSE 5% NACL 0.45% 1,000 ML IV SCH ×2 (09:16→17:28)
[2020-06-11] MEDS: FOLIC ACID 1 MG TABLET PO SCH (09:17)
[2020-06-11] MEDS: METOPROLOL TARTRATE 25 MG TABLET PO SCH ×2 (09:17→21:36)
[2020-06-11] MEDS: FUROSEMIDE 20 MG TABLET PO SCH (09:17)
[2020-06-11] MEDS: THIAMINE 100 MG TABLET PO SCH (09:18)
[2020-06-11] MEDS: PANTOPRAZOLE 40 MG TABLET PO SCH ×2 (09:18→21:36)
[2020-06-12] MEDS: DEXTROSE 5% NACL 0.45% 1,000 ML IV SCH ×2 (00:53→09:15)
[2020-06-12] MEDS: LACTULOSE 20 GM/30 ML UDCUP PO SCH ×4 (00:54→22:12)
[2020-06-12 06:12] LABS: Basophils # 0.1 10*3/uL (0.0-0.2); Basophils % 0.7 % (0.0-0.8); Eosinophils # 0.1 10*3/uL (0.0-0.87); Eosinophils % 0.9 % (0.00-10.9); Hematocrit 26.8 VOL% (42.0-52.0); Hemoglobin 9.1 GM/DL (14.0-18.0); Immature Granulocytes % 1.9 %; Lymphocytes # 0.8 10*3/uL (1.4-4.0); Lymphocytes % 7.7 % (21.2-54.2); Mean Corpuscular Volume 98.5 FL (87-102); Monocytes % 6.3 % (1.7-12.7); Neutrophils % 82.5 % (38.7-73.9); Platelet Count 118 T/CUMM (130-400); Red Blood Count 2.72 MC/CUMM (3.8-5.5); Red Cell Distribution Width 21.2 % (9.3-17.3); White Blood Count 10.6 T/CUMM (4-12)
[2020-06-12 06:32] LABS: Hypochromasia 1+; Microcytosis Slight; Platelet Estimate Decreased
[2020-06-12 06:38] LABS: Albumin 1.6 G/DL (3.4-5.0); Calcium 10.6 MG/DL (8.5-10.1); Osmolality,Calculated 311.3 MOS/KG (273-304); Total Protein 5.4 G/DL (6.4-8.3)
[2020-06-12 06:42] LABS: Bilirubin,Total 29.4 MG/DL (0.2-1.0)
[2020-06-12] MEDS: INSULIN LISPRO 100 UNIT/ML SUBCUT SCH ×4 (08:33→22:12)
[2020-06-12] MEDS: THIAMINE 100 MG TABLET PO SCH (10:07)
[2020-06-12] MEDS: PANTOPRAZOLE 40 MG TABLET PO SCH ×2 (10:07→22:12)
[2020-06-12] MEDS: METOPROLOL TARTRATE 25 MG TABLET PO SCH ×2 (10:07→22:12)
[2020-06-12] MEDS: FUROSEMIDE 20 MG TABLET PO SCH (10:08)
[2020-06-12] MEDS: FOLIC ACID 1 MG TABLET PO SCH (10:08)
[2020-06-12] MEDS: ASPIRIN EC 81 MG TABLET PO SCH (10:08)
[2020-06-12] MEDS ORDERED: TUBERCULIN SKIN TEST 0.1 ML SYRINGE INTRADERM ONE (11:48)
[2020-06-12] MEDS: DEXTROSE 5% 1,000 ML IV SCH (13:47)
[2020-06-13] MEDS: LACTULOSE 20 GM/30 ML UDCUP PO SCH ×4 (02:36→21:47)
[2020-06-13] MEDS: DEXTROSE 5% 1,000 ML IV SCH ×2 (03:11→16:47)
[2020-06-13 05:37] LABS: Basophils # 0.1 10*3/uL (0.0-0.2); Basophils % 0.6 % (0.0-0.8); Eosinophils # 0.2 10*3/uL (0.0-0.87); Eosinophils % 1.3 % (0.00-10.9); Hematocrit 27.3 VOL% (42.0-52.0); Hemoglobin 9.2 GM/DL (14.0-18.0); Immature Granulocytes % 3.9 %; Mean Corpuscular HGB Conc 33.7 GM/DL (32-36); Mean Corpuscular Volume 95.5 FL (87-102); Mean Platelet Volume 9.1 FL (9.6-12.0); Monocytes % 6.8 % (1.7-12.7); Neutrophils % 79.4 % (38.7-73.9); Platelet Count 98 T/CUMM (130-400); Red Blood Count 2.86 MC/CUMM (3.8-5.5); Red Cell Distribution Width 20.7 % (9.3-17.3); White Blood Count 12.8 T/CUMM (4-12)
[2020-06-13 05:57] LABS: Hypochromasia 1+; Microcytosis 1+; Ovalocytes Slight; Platelet Estimate Decreased
[2020-06-13 06:06] LABS: Albumin 1.5 G/DL (3.4-5.0); Calcium 10.1 MG/DL (8.5-10.1); Osmolality,Calculated 293.5 MOS/KG (273-304); Total Protein 5.3 G/DL (6.4-8.3)
[2020-06-13 06:11] LABS: Bilirubin,Total 28.4 MG/DL (0.2-1.0)
[2020-06-13] MEDS: INSULIN LISPRO 100 UNIT/ML SUBCUT SCH ×4 (07:43→22:28)
[2020-06-13] MEDS: FOLIC ACID 1 MG TABLET PO SCH (08:35)
[2020-06-13] MEDS: METOPROLOL TARTRATE 25 MG TABLET PO SCH ×3 (08:35→21:46)
[2020-06-13] MEDS: FUROSEMIDE 20 MG TABLET PO SCH (08:35)
[2020-06-13] MEDS: PANTOPRAZOLE 40 MG TABLET PO SCH ×2 (08:35→21:46)
[2020-06-13] MEDS: THIAMINE 100 MG TABLET PO SCH (08:35)
[2020-06-13] MEDS: ASPIRIN EC 81 MG TABLET PO SCH (08:35)
[2020-06-14] MEDS: LACTULOSE 20 GM/30 ML UDCUP PO SCH ×4 (02:33→21:02)
[2020-06-14 06:00] LABS: Albumin 1.4 G/DL (3.4-5.0); Calcium 9.4 MG/DL (8.5-10.1); Osmolality,Calculated 291.1 MOS/KG (273-304); Total Protein 5.3 G/DL (6.4-8.3)
[2020-06-14 06:05] LABS: Basophils # 0.1 10*3/uL (0.0-0.2); Basophils % 0.5 % (0.0-0.8); Eosinophils # 0.2 10*3/uL (0.0-0.87); Eosinophils % 1.4 % (0.00-10.9); Hematocrit 27.3 VOL% (42.0-52.0); Hemoglobin 9.6 GM/DL (14.0-18.0); Immature Granulocytes % 4.7 %; Immature Granulocytes Absolute 0.63 #; Lymphocytes # 1.1 10*3/uL (1.4-4.0); Mean Corpuscular HGB Conc 35.2 GM/DL (32-36); Mean Corpuscular Volume 95.5 FL (87-102); Mean Platelet Volume 9.8 FL (9.6-12.0); Monocytes % 7.9 % (1.7-12.7); Neutrophils % 77.5 % (38.7-73.9); Red Blood Count 2.86 MC/CUMM (3.8-5.5); Red Cell Distribution Width 19.9 % (9.3-17.3); White Blood Count 13.4 T/CUMM (4-12)
[2020-06-14 06:07] LABS: Bilirubin,Total 26.5 MG/DL (0.2-1.0)
[2020-06-14 06:09] LABS: Platelet Count 83 T/CUMM (130-400)
[2020-06-14] MEDS: DEXTROSE 5% 1,000 ML IV SCH ×2 (06:10→21:02)
[2020-06-14 06:19] LABS: Lymphocytes 6 % (20-55); Platelet Estimate Decreased; Segmented Neutrophils 82 % (50-85); Total Cells Counted 100
[2020-06-14 06:20] LABS: Hypochromasia 1+; Microcytosis 1+
[2020-06-14] MEDS: INSULIN LISPRO 100 UNIT/ML SUBCUT SCH ×4 (07:33→20:31)
[2020-06-14] MEDS: METOPROLOL TARTRATE 25 MG TABLET PO SCH ×2 (08:24→21:01)
[2020-06-14] MEDS: THIAMINE 100 MG TABLET PO SCH (08:24)
[2020-06-14] MEDS: PANTOPRAZOLE 40 MG TABLET PO SCH ×2 (08:24→21:02)
[2020-06-14] MEDS: FOLIC ACID 1 MG TABLET PO SCH (08:24)
[2020-06-14] MEDS: ASPIRIN EC 81 MG TABLET PO SCH (08:24)
[2020-06-14] MEDS: FUROSEMIDE 20 MG TABLET PO SCH (08:24)
[2020-06-15] MEDS: LACTULOSE 20 GM/30 ML UDCUP PO SCH ×4 (03:34→20:42)
[2020-06-15] MEDS: INSULIN LISPRO 100 UNIT/ML SUBCUT SCH ×4 (07:52→20:42)
[2020-06-15] MEDS: FUROSEMIDE 20 MG TABLET PO SCH (08:42)
[2020-06-15] MEDS: PANTOPRAZOLE 40 MG TABLET PO SCH ×2 (08:42→20:42)
[2020-06-15] MEDS: FOLIC ACID 1 MG TABLET PO SCH (08:42)
[2020-06-15] MEDS: METOPROLOL TARTRATE 25 MG TABLET PO SCH ×2 (08:42→20:42)
[2020-06-15] MEDS: ASPIRIN EC 81 MG TABLET PO SCH (09:00)
[2020-06-15] MEDS: THIAMINE 100 MG TABLET PO SCH (09:00)
[2020-06-15] MEDS: DEXTROSE 5% 1,000 ML IV SCH ×2 (10:27→23:37)
[2020-06-16] MEDS: LACTULOSE 20 GM/30 ML UDCUP PO SCH ×4 (04:52→21:39)
[2020-06-16] MEDS: INSULIN LISPRO 100 UNIT/ML SUBCUT SCH ×4 (07:53→22:37)
[2020-06-16] MEDS: ASPIRIN EC 81 MG TABLET PO SCH (09:24)
[2020-06-16] MEDS: FUROSEMIDE 20 MG TABLET PO SCH (09:24)
[2020-06-16] MEDS: FOLIC ACID 1 MG TABLET PO SCH (09:24)
[2020-06-16] MEDS: THIAMINE 100 MG TABLET PO SCH (09:25)
[2020-06-16] MEDS: PANTOPRAZOLE 40 MG TABLET PO SCH ×2 (09:25→21:40)
[2020-06-16] MEDS: METOPROLOL TARTRATE 25 MG TABLET PO SCH ×2 (09:25→21:40)
[2020-06-16] MEDS: DEXTROSE 5% 1,000 ML IV SCH ×2 (12:32→14:55)
[2020-06-17] MEDS: LACTULOSE 20 GM/30 ML UDCUP PO SCH ×4 (02:05→21:27)
[2020-06-17] MEDS: DEXTROSE 5% 1,000 ML IV SCH ×2 (02:19→14:50)
[2020-06-17] MEDS: INSULIN LISPRO 100 UNIT/ML SUBCUT SCH ×4 (08:07→21:27)
[2020-06-17] MEDS: THIAMINE 100 MG TABLET PO SCH (10:17)
[2020-06-17] MEDS: ASPIRIN EC 81 MG TABLET PO SCH (10:17)
[2020-06-17] MEDS: PANTOPRAZOLE 40 MG TABLET PO SCH ×2 (10:17→21:26)
[2020-06-17] MEDS: FOLIC ACID 1 MG TABLET PO SCH (10:17)
[2020-06-17] MEDS: FUROSEMIDE 20 MG TABLET PO SCH (10:19)
[2020-06-17] MEDS: METOPROLOL TARTRATE 25 MG TABLET PO SCH ×2 (10:19→21:27)
[2020-06-18] MEDS: DEXTROSE 5% 1,000 ML IV SCH ×2 (01:01→10:23)
[2020-06-18] MEDS: LACTULOSE 20 GM/30 ML UDCUP PO SCH ×3 (03:11→12:54)
[2020-06-18 06:01] LABS: Basophils % 0.2 % (0.0-0.8); Eosinophils % 0.2 % (0.00-10.9); Hematocrit 25.9 VOL% (42.0-52.0); Hemoglobin 9.2 GM/DL (14.0-18.0); Immature Granulocytes % 3.6 %; Lymphocytes % 6.2 % (21.2-54.2); Mean Corpuscular HGB Conc 35.5 GM/DL (32-36); Mean Corpuscular Volume 93.5 FL (87-102); Mean Platelet Volume 9.3 FL (9.6-12.0); Neutrophils % 83.8 % (38.7-73.9); Red Blood Count 2.77 MC/CUMM (3.8-5.5); Red Cell Distribution Width 18.5 % (9.3-17.3); White Blood Count 16.5 T/CUMM (4-12)
[2020-06-18 06:03] LABS: Platelet Count 59 T/CUMM (130-400)
[2020-06-18 06:06] LABS: Albumin 1.5 G/DL (3.4-5.0); Calcium 9.3 MG/DL (8.5-10.1); Osmolality,Calculated 285.4 MOS/KG (273-304); Total Protein 5.3 G/DL (6.4-8.3)
[2020-06-18 06:19] LABS: Bilirubin,Total 30.3 MG/DL (0.2-1.0)
[2020-06-18 06:24] LABS: Eosinophils 1 % (0-10); Lymphocytes 3 % (20-55); Platelet Estimate Decreased; Segmented Neutrophils 93 % (50-85); Total Cells Counted 100
[2020-06-18 06:25] LABS: Burr Cells Slight; Hypochromasia 1+; Microcytosis Slight; Ovalocytes Slight
[2020-06-18] MEDS: INSULIN LISPRO 100 UNIT/ML SUBCUT SCH ×3 (08:45→15:54)
[2020-06-18] MEDS: ASPIRIN EC 81 MG TABLET PO SCH (10:20)
[2020-06-18] MEDS: THIAMINE 100 MG TABLET PO SCH (10:20)
[2020-06-18] MEDS: PANTOPRAZOLE 40 MG TABLET PO SCH (10:20)
[2020-06-18] MEDS: FOLIC ACID 1 MG TABLET PO SCH (10:20)
[2020-06-18] MEDS: METOPROLOL TARTRATE 25 MG TABLET PO SCH (10:23)
[2020-06-18] MEDS: FUROSEMIDE 20 MG TABLET PO SCH (10:23)
[2020-06-18] MEDS ORDERED: SODIUM CHLORIDE 0.9% 1,000 ML IV SCH (10:30)
[2020-06-18 13:16] VITALS: BP 79/44
== END 2020-06-18 16:54 | disposition expired | DRG 435 ==
LOC: SUATTDRO 21:03 → N.TELES 21:03
PROVIDERS: ADMIT Internal Medicine; ATTEND Internal Medicine